=== PATIENT | male | born 1965 | race African-American/Black ===

== ENCOUNTER 2016-07-31 21:19 | Emergency (ER) | payer BC ==
[~2016-07-31] VITALS: Ht 182.9 cm; Wt 90.3 kg
--- NOTE | ~2016-07-31 | EKG ---
[place] [address] [facility] [place] [address] ELECTROCARDIOGRAM REPORT Name: DAMIEN HOLLEY Room #: [facility]#: [id number] Admission: 07/31/16 Attend Phys: Discharge: 08/01/16 Date of : 61 Report #: [id number] THIS REPORT FOR: //name// [facility] ED Test Date: 2016-07-31 Test Time: 21:25:51 Pat Name: DAMIEN HOLLEY Department: Room: Gender: Managing Broker: Babita WOLF : 1965 Requested By: Alisa Sunshine Order Number: [id number] MD: Cedric Lindsay Measurements Intervals [place] Rate: 69 P: 32 WY: 147 QRS: -30 QRSD: 86 T: 8 QT: 400 QTc: 429 Interpretive Statements Sinus rhythm Left axis deviation Abnormal R-wave progression, early transition Compared to ECG 10/21/2012 15:56:04 No significant change was found Electronically Signed On 08-02-2016 7:58:41 CDT by Cedric Lindsay [email or web address] <ELECTRONICALLY SIGNED> By: Cedric Lindsay MD, [facility] 08/02/16 0758 24 24 Cedric Lindsay MD, [facility] /EPI
[~2016-07-31 21:19] MED LIST: ADULT LOW DOSE81 MG PO; EXCEDRIN CAPLE1 EACH PO; IBUPROFEN 600600 M1 PO; IMITREX 25 MG T25 M1 PO; NORCO 5-325 TA1 EACH PO; OMEPRAZOLE20 M2 PO; PERCOCET 5-3251 EACH PO; PHENERGAN 25 MG25 M1 PO
[2016-07-31 22:12] LABS: ABSOLUTE NEUTROPHILS 10.5 thou/uL (1.4-8.2); BASOPHILS 0.5 % (0.0-2.0); HEMATOCRIT 41.2 % (42.0-52.0); HEMOGLOBIN 14.1 gm/dL (14.0-18.0); LYMPHOCYTES 10.3 % (24.0-44.0); MANUAL DIFF NO; MCH 32.7 pg (26.0-34.0); MCHC 34.3 g/dL (28.0-37.0); MCV 95.4 fL (80.0-100.0); MONOCYTES 3.1 % (1.0-8.0); PLATELET COUNT 250 thou/uL (150-400); POLYS 86.1 % (36.0-66.0); RBC 4.32 mil/uL (4.50-6.00); RDW 11.7 % (10.5-14.5); WBC 12.2 thou/uL (4.0-11.0)
[2016-07-31 22:22] LABS: ANION GAP 9 mmol/L (7-16); BUN 19 mg/dL (7-18); CALCIUM 8.8 mg/dL (8.5-10.1); CHLORIDE 103 mmol/L (98-107); CO2 26 mmol/L (21-32); CREATININE 1.6 mg/dL (0.7-1.3); GLUCOSE 131 mg/dL (74-106); POTASSIUM 4.4 mmol/L (3.5-5.1); SODIUM 138 mmol/L (136-145)
[2016-07-31 22:30] LABS: TROPONIN-I < 0.04 ng/mL (<0.04-0.07)
[2016-07-31] MEDS ORDERED: ZOFRAN ODT4 MG PO (23:56)
[2016-07-31] MEDS ORDERED: NORCO 5-325 TA1 EACH PO (23:56)
[2016-08-01 01:28] VITALS: BP 121/78
== END 2016-08-01 01:31 | disposition home or self-care (01) ==
LOC: ER 21:19
PROVIDERS: Emergency Medicine
DX: R07.89 Other chest pain (principal); Z98.890 Other specified postprocedural states; Z85.46 Personal history of malignant neoplasm of prostate; F10.99 Alcohol use, unspecified with unspecified alcohol-induced disorder